=== PATIENT | male | born 1970 | race Caucasian/White ===

== ENCOUNTER 2023-10-21 13:53 | Emergency (ER) | payer OTHER, SELFPAY ==
[2023-10-21 14:17] VITALS: BP 135/89; PULSE 65; RESP 18; TEMP 36.4; O2SAT 98
--- NOTE | 2023-10-21 14:41 | ED.URI ---
HPI - URI/Sore Throat General Chief Complaint: Upper Respiratory Infection Stated Complaint: sorethroat History of Present Illness HPI Narrative: 53-year-old male presented for complaint of nasal congestion, sore throat and cough worsening over the past 4 days. Reports fever up to 100.9 yesterday. Reports body aches today. Denies taken Esperanza[place] and Motrin. Denies sick contacts. Denies shortness of breath, wheezing, nausea vomiting, diarrhea or lethargy. Tested negative for COVID at home 3 times. Related Data Home Medications Medication Instructions Recorded Confirmed No Home Medications 10/21/23 10/21/23 Allergies Allergy/AdvReac Type Severity Reaction Status Date / Time No Known Allergies Allergy Verified 10/21/23 14:26 Review of Systems Review of Systems: CONSTITUTIONAL: Denies body aches, fever, chills, or sweats. EYES: Denies visual changes, redness, or discharge. ENT: Reports rhinorrhea, sore throat, or otalgia. CARDIOVASCULAR: Denies chest pain, palpitations, or edema. RESPIRATORY: Denies dyspnea. GASTROINTESTINAL: Denies abdominal pain, nausea, vomiting, or diarrhea. SKIN: Denies rash, itching, or wounds. MUSCULOSKELETAL: Denies back pain, joint pain, or myalgia. NEUROLOGIC: Denies headache Exam Narrative: GENERAL: well-appearing, no acute distress. EYES: conjunctivae clear ENT: Mucous membranes moist. TMs pearly valenzuela with normal light reflex bilaterally; no tragal tenderness. Oropharynx not erythematous without lesions. Tonsilsnot enlarged and without exudate. No drooling, no hoarseness, no trismus, uvula midline. No tripod positioning, hot potato voice, or soft palate swelling. NECK: Supple. No lymphadenopathy CHEST: Clear to auscultation, breath sounds equal. No respiratory distress, speaks in full sentences. HEART: Regular rate and rhythm. No murmur heard. SKIN: Warm, dry, no rash. NEURO: Alert and oriented x3. Course Course Emergency Course: Patient is aware of diagnosis, understands and agrees to treatment plan. Anticipatory guidance given. Patient agrees to follow-up as directed and is aware of reasons to seek care at the emergency department. Portions of this record may have been created with voice recognition software Level of Care: Express Care Visit Vital Signs Vital signs: Vital Signs Temperature 97.6 F 10/21/23 14:17 Pulse Rate 65 10/21/23 14:17 Respiratory Rate 18 10/21/23 14:17 Blood Pressure 135/89 10/21/23 14:17 Pulse Oximetry 98 10/21/23 14:17 Oxygen Delivery Room Air 10/21/23 14:17 Temperature 97.6 F 10/21/23 14:17 Pulse Rate 65 10/21/23 14:17 Respiratory Rate 18 10/21/23 14:17 Blood Pressure 135/89 10/21/23 14:17 Pulse Oximetry 98 10/21/23 14:17 Oxygen Delivery Room Air 10/21/23 14:17 MDM - URI/Sore Throat MDM Narrative Medical decision making narrative: Negative flu, COVID, strep result reviewed with pt. Advise supportive treatments. Patient is appropriate for outpatient treatment and follow-up. Differential Diagnosis Differential diagnosis: Likely upper respiratory infection, viral infection and pharyngitis Lab Data Labs: Lab Results 10/21/23 Range/Units 14:33 POC SARS CoV-2 Ag Negative (Negative) Influenza A Screen Negative Reference Range: Negative Influenza B Screen Negative Reference Range: Negative Strep Screen Presumptive Negative *(Reference Range: Negative)* Discharge Plan Discharge Clinical Impression: Upper respiratory infection Qualifiers: URI type: unspecified URI Qualified Code(s): J06.9 - Acute upper respiratory infection, unspecified Patient Disposition: Home, Self-Care Condition: Stable Instructions: Antibiotic Form, Upper Respiratory Infection (ED) Additional In
== END 2023-10-21 15:02 | disposition home or self-care (01) ==
PROVIDERS: Emergency Provider Nurse Practitioner Family; PCP Internal Medicine
DX: J06.9 Acute upper respiratory infection, unspecified (principal); Z20.822 Contact with and (suspected) exposure to COVID-19
CPT/HCPCS: 87081; 87426; 87804; 87880; 99213; G0463

== ENCOUNTER 2024-08-20 15:54 | Outpatient (CLI) | payer OTHER, SELFPAY ==
--- OUTSIDE RECORDS SUMMARY | 2024-08-20 18:36 | XMS_ITS | Encounter Summary ---
[facility] Address [address] [place] [address] Phone Care Team Providers Care Windows Security Engineer Name Role Phone Sal Rodríguez MD Primary Care Provider [phone] Encounter Details Date Type Department Care Team (Late st Contact Info) Description 10/10/2017 Orders Only [facility] [address] [place] [address] Sal Rodríguez MD [address] [address] Social History Tobacco Use Types Packs/Day Years Used Date Smoking Tobacco: Never Smokeless Tobacco: Never Alcohol Use Standard Drinks/Week Comments No 0 (1 standard drink = 0.6 oz pur e alcohol) Sex and Gender Information Value Date Recorded Sex Assigned at Not on file 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 Gender Identity Not on file Sexual Orientation Not on file documented as of this encounter Plan of Treatment Not on file documented as of this encounter Procedures Procedure Name Priority Date/Time Associated Diagnosis Comments SCAN - RADIOLOGY/IMAGING 10/10/2017 2:09 PM CDT documented in this encounter Results * SCAN - RADIOLOGY/IMAGING (10/10/2017 2:09 PM CDT) Anatomical Region Laterality Modality Other us Sal Rodríguez MD Final Resu lt documented in this encounter Visit Diagnoses Not on filedocumented in this encounter Care Teams Windows Security Engineer Relationship Specialty Start Date End Date Sal Rodríguez MD PCP - General 08/04/12 documented as of this encounter
--- OUTSIDE RECORDS SUMMARY | 2024-08-20 18:36 | XMS_ITS | Patient Health Summary ---
Author Organization [facility] Address [address] [place] [address] Care Team Providers Care Manager Sap Name Role Phone Sal Rodríguez MD Primary Care Provider [phone] Note from [facility],non-owned Affiliates and Associated Physician Practices is amultiple site organization consisting of ambulatory clinics and hospital sitesin [place], [place], [place] and [place]. This disclosure is being madepursuant to the Care Everywhere program and may not contain all information available regarding this patient. Last updated 18.[facility] Allergies No known active allergies Medications Be aware that medications may not be up to date on this document. Always verify current medications with the patient. No known medications Social History Tobacco Use Types Packs/Day Years Used Date Smoking Tobacco: Never Sex and Gender Information Value Date Recorded Sex Assigned at Not on file Gender Identity Not on file Sexual Orientation Not on file Last Filed Vital Signs Vital Sign Reading Time Taken Comments Blood Pressure 114/74 08/02/2018 4:34 PM CLINICAL LABORATORY MEDICAL DIRECTOR Pulse 90 08/02/2018 4:34 PM CLINICAL LABORATORY MEDICAL DIRECTOR Temperature 36.9 C (98.4 F) 08/02/2018 4:34 PM CLINICAL LABORATORY MEDICAL DIRECTOR Respiratory Rate 16 08/02/2018 4:34 PM CLINICAL LABORATORY MEDICAL DIRECTOR Oxygen Saturation 96% 08/02/2018 4:34 PM CLINICAL LABORATORY MEDICAL DIRECTOR Inhaled Oxygen Concentration - - Weight 78.9 kg (174 lb) 08/02/2018 4:34 PM CLINICAL LABORATORY MEDICAL DIRECTOR Height 185.4 cm (6' 1 ) 08/02/2018 4:34 PM CLINICAL LABORATORY MEDICAL DIRECTOR Body Mass Index 22.96 08/02/2018 4:34 PM CLINICAL LABORATORY MEDICAL DIRECTOR Procedures * INFLUENZA A+B - POINT OF CARE (AMB)(Performed 08/02/2018) Performed for Influenza * STREP A SCREEN - POINT OF CARE (AMB) STL(Performed 08/02/2018) Performed for Influenza * STREP A SCREEN - POINT OF CARE (AMB) STL(Performed 04/26/2016) Performed for Pharyngitis, unspecified etiology Results * STREP A SCREEN - POINT OF CARE (AMB) STL (08/02/2018) Only the most recent of2 resultswithin the time period is included. Strep A Rapid POCT Negative Negative Strep A Internal Control Present Lot # [id number] Expiration Date [id number] Throat ENTIRE THROAT (SURFACE REGION OF NECK) / Unknown 08/02/2018 Antwon Reinoso MOVING PICTURE OPERATOR-ONCOLOGY PHARMACIST LAB - POINT OF CARE ORDERABLES * (ABNORMAL) INFLUENZA A+B - POINT OF CARE (AMB) (08/02/2018) Influenza A Antigen Rapid Positive(A) Negative Influenza B Antigen Rapid Negative Negative Influenza Internal Control present NEGATIVE - POSITIVE Influenza Lot Number [id number] Influenza Expiration Date 9,349,020 Other NASOPHARYNGEAL SWAB / Unknown 08/02/2018 Antwon Reinoso MOVING PICTURE OPERATOR-ONCOLOGY PHARMACIST LAB - POINT OF CARE ORDERABLES Care Teams Manager Sap Relationship Specialty Start Date End Date Sal Rodríguez MD PCP - General 04/26/16
--- OUTSIDE RECORDS SUMMARY | 2024-08-20 18:36 | XMS_ITS | Referral Summary ---
Author Organization [facility] Address [address] [place] [address] Care Team Providers Care Handle Finisher Name Role Phone Sal Rodríguez MD Primary Care Provider [phone] Source Comments [facility],non-owned Affiliates and Associated Physician Practices is amultiple site organization consisting of ambulatory clinics and hospital sitesin [place], [place], [place] and [place]. This disclosure is being madepursuant to the Care Everywhere program and may not contain all information available regarding this patient. Last updated 18.[facility] Allergies No known active allergies Medications Be [...] Comments Blood Pressure 114/74 08/02/2018 4:34 PM TAIL EDGER Pulse 90 08/02/2018 4:34 PM TAIL EDGER Temperature 36.9 C (98.4 F) 08/02/2018 4:34 PM TAIL EDGER Respiratory Rate 16 08/02/2018 4:34 PM TAIL EDGER Oxygen Saturation 96% 08/02/2018 4:34 PM TAIL EDGER Inhaled Oxygen Concentration - - Weight 78.9 kg (174 lb) 08/02/2018 4:34 PM TAIL EDGER Height 185.4 cm (6' 1 ) 08/02/2018 4:34 PM TAIL EDGER Body Mass Index 22.96 08/02/2018 4:34 PM TAIL EDGER Plan of Treatment Not on file Care Teams Handle Finisher Relationship Specialty Start Date End Date Sal Rodríguez MD PCP - General 04/26/16
--- OUTSIDE RECORDS SUMMARY | 2024-08-20 18:36 | XMS_ITS | Data Portability ---
Author Organization [facility] Address [address] [place] [address] Care Team Providers Care International Trade Analyst Name Role Phone GARRICKMARIANGEL ANG Primary Care Provider Unavailab le Assessment No assessment recorded. Plan of Treatment Reminders Order Date Submit Date Provider Last Modified By Organization Details Last Modified Time Details Appointments None recorded. Lab prolactin, serum 2023 024 [facility], [address], [address], 14:56:15 testostero ne, free + total, serum 2023 024 [facility], [facility] [address], [address], 14:55:05 TSH + free T4, serum 2023 024 [employer] [facility], [facility] [address], [address], 14:55:31 lipid panel, serum 2023 024 [facility], [facility] [address], [address], 14:55:39 CBC w/ auto diff 2023 024 [facility] [employer] [facility], [facility] [address], [address], 14:56:37 CMP, serum or plasma 2023 024 [facility] [employer] [facility], [address] [address], [place], [address], 14:55:54 PSA, serum or plasma 2023 024 [facility], [address] [address], [place], [address], 14:56:26 noninvasiv e colorectal cancer DNA + occult blood screening, QL, stool 2023 [facility] (Cologuard Orders Only), [address], [address], [place], [address], 03:26:58 HbA1c (hemoglobi n A1c), blood 2023 [facility] [employer] [facility], [address], [address], 14:56:03 Referral None recorded. Procedures None recorded. Surgeries None recorded. Imaging None recorded. Medication Orders None recorded. Patient TargetsNo targets recorded. Patient InstructionsNo instructions recorded. Reason for Referral None Reported. Results Created Date Observation Date Name Description Value Unit Range Abnormal Flag Note LastModifiedBy Organization Detail LastModifiedTime 03/15/20 24 03/15/2024 COLOG UARD cologuard result reportable NEGATI VE negati ve normal NEGAT MERVAT TEST RESUL T. A negat mervat Colog uard resul t indic ates a low likel ihood that a color ectal cance r (CRC) or advan nelly adeno ma (dennis omato us polyp s with more advan nelly pre-m align ant featu res) is prese nt. The chanc e that a perso n with a negat mervat Colog uard test has a color ectal cance r is less than 1 in 1500 (nega tive predi ctive value >99.9 %) or has an advan nelly adeno ma is less than 5.3% (nega tive predi ctive value 94.7% ). These data are based on a prosp ectiv e cross -sect ional study of 10,00 0 indiv idual s at [facility] risk for color ectal cance r who were scree leni with both Colog uard and colon oscop y. (Rama Gates et al, N Engl J Med 2014; 370(1 4):12 86-12 97) The sriram l value (refe rence range ) for this assay is negat mervat. COLOG UARD RE-SC REENI NG RECOM MENDA TION: Perio dic color ectal cance r scree fede is an impor tant part of preve ntive healt hcare for asymp tomat ic indiv idual s at [facility] risk for color ectal cance r. Follo wing a negat mervat Colog uard resul t, the Ameri can Cance r Socie ty and U.S. Multi -Soci ety Task Force scree fede guide lines recom mend a Colog uard re-sc reemonique ng inter derrick of 3 years . Refer ences : Ameri can Cance r Socie ty Guide line for Color ectal Cance r Scree fede: https ://karen w.can cer.o rg/ca ncer/ colon -rect al-ca ncer/ detec tion- diagn osis- stagi ng/ac s-rec ommen datio ns.ht ml.; Jose DK, Abraham duque CR, Elizabeth TolbertK, Color ectal Cance r Scree fede: Recom menda tions for Physi cians and Patie nts from the U.S. Multi -Soci ety Task Force on Color ectal Cance r Scree fede Yumiko y 2017; 112:1 016-1 030. TEST DESCR IPTIO N: Niland site algor ithmi c juanito sis of stool DNA-b iomar kers with hemog lobin immun oassa y. Quant itati ve value s of indiv idual bioma rkers are not repor table and are not assoc iated with indiv idual bioma rker resul t refer ence range s. Colog uard is inten ded for color ectal cance r scree fede of adult s of eithe r sex, 45 years or older , who are at [facility] for color ectal cance r (CRC) . Colog uard has been appro vinh for use by the U.S. FDA. The perfo rmanc e of Colog uard was estab lishe d in a cross secti onal study of [facility] adult s aged 50-84 . Colog uard perfo rmanc e in patie nts ages 45 to 49 years was estim ated by sub-g roup juanito sis of near- age group s. Colon oscop ies perfo rmed for a posit mervat resul t may find as the most clini george signi fican t lesio n: color ectal cance r [4.0% ], advan nelly adeno ma (incl uding sessi le marilia inocente polyp s great er than or equal to 1cm diame ter) [20%] or non- advan nelly adeno ma [31%] ; or no color ectal neopl eris [45%] . These estim ates are deriv ed from a prosp ectiv e cross -sect ional scree fede study of 10,00 0 indiv idual s at [facility] risk for color ectal cance r who were scree leni with both Colog uard and colon oscop y. (Rama Gates et al, N Engl J Med 2014; 370(1 4):12 86-12 97.) Colog uard may produ ce a false negat mervat or false posit mervat resul t (no color ectal cance r or preca ncero us polyp prese nt at colon oscop y follo w up). A negat mervat Colog uard test resul t does not guara ntee the absen ce of CRC or advan nelly adeno ma (pre- cance r). The curre nt Colog uard scree fede inter derrick is every 3 years . (Amer ican Cance r Socie ty and U.S. Multi -Soci ety Task Force ). Colog uard perfo rmanc e data in a 10,00 0 patie nt pivot al study using colon oscop y as the refer ence metho d can be acces sed at the follo wing locat ion: www.e xactl abs.c om/re millicent . Addit ional descr iptio n of the Colog uard test proce ss, warni ngs and preca ution s can be found at www.c leatha nargis.c om. Not Available [facility] (Cologuard Orders Only) [address], [place], [address], 03/21/2024 03:26:58 Result Notes None recorded. Problems Name Problem SNOMED Code Status Onset Date Resolution Date Notes Provider Name and Address Organization Details Recorded Time Erectile dysfunction 040397279 Active 2023 OVI Toussaint Attn: Chelsey jones,[address] [place], [address], [facility] 4 00:46:35 Body mass index 25-29 - overweight 934855861 Active 2023 [facility] Toussaint Attn: Chelsey jones,[address] [facility], [place], [address], [facility] 4 00:47:13 Problem Notes None recorded. Procedures Surgical History Date Name Laterality Status Provider Name and Address Organization Details Recorded Time surgical procedure completed Mimi Sue MA [facility] 03/09/2024 09:31:01 arthroscopy of shoulder completed Mimi Sue MA [facility] 03/09/2024 09:31:57 Imaging Results None recorded. Procedure Notes None recorded. Medical Equipment None Reported. Allergies No known drug allergies Medications Name Sig Start Date Stop Date Status Note LastModified by Organization Details LastModified Time blood pressu solution kit 03/09 completed Not Available Not Available Not Available sildenafil 100 mg tablet Take 1 tablet every day by oral route. active Not Available Not Available No t Available tadalafil 5 mg tablet Take by oral route for 25 days. active Not Available Not Available No t Available Vitals Date Recorded Respiratory rate Body height Body mass index (BMI) Body weight Oxygen saturation Oxygen saturation in Arterial blood by Pulse oximetry Heart rate Systolic blood pressure Diastolic blood pressure Provider Name and Address Organization Details Last Updated DateTime 4 18 /min 180.34 cm 25.9 kg/m2 60472.1 8 g 98 % 98 % 80 /min 132 mm[Hg] 80 mm[Hg] Mimi Sue MA [facility] 4 09:25:54 Date Recorded Systolic blood pressure Diastolic blood pressure Provider Name and Address Organization Details Last Updated DateTime 03/09/2024 120 mm[Hg] 82 mm[Hg] OVI Toussaint Attn: Accounting,[address] [place], [address], [facility] 03/09/2024 09:57:40 Date Recorded Body height Body mass index (BMI) Body weight Oxygen saturation Oxygen saturation in Arterial blood by Pulse oximetry Heart rate Systolic blood pressure Diastolic blood pressure Provider Name and Address Organization Details Last Updated DateTime 5 180.34 cm 26.6 kg/m2 91404.1 4 g 98 % 98 % 78 /min 130 mm[Hg] 82 mm[Hg] Mimi Sue MA [facility] 5 12:46:52 Social History Question Answer Notes LastModified by Organizat ion Details LastModified Time Tobacco Smoking Status Never Smoker Mimi Sue MA null, [facility] 03/09/2024 09:23:33 Do You Have An Advance Directive? Yes Information not available 03/09/2024 What Is Your Level Of Alcohol Consumption? Occasional Information not available 03/09/2024 Are You Blind Or Do You Have Difficulty Seeing? No Glasses Information not available 03/09/2024 What Is Your Level Of Caffeine Consumption? Moderate Soda/ Coffee? Tea Information not available 03/09/2024 In The 14 Days Before Symptom Onset, Have You Had Close Contact With A Laboratory-confi rmed COVID-19 While That Case Was Ill? No Information not available 03/09/2024 In The 14 Days Before Symptom Onset, Have You Had Close Contact With A Person Who Is Under Investigation For COVID-19 While That Person Was Ill? No Information not available 03/09/2024 Have You Been To An Area Known To Be High Risk For COVID-19? No Information not available 03/09/2024 Are You Currently Employed? Yes Information not available 08/13/2024 Are You Deaf Or Do You Have Serious Difficulty Hearing? No Tinnuits Information not available 03/09/2024 What Type Of Diet Are You Following? REGULAR Information not available 03/09/2024 Are There Any Guns Present In Your Home? No Information not available 03/09/2024 What Was The Date Of Your Most Recent Tobacco Screening? 08/13/2024 Information not available 08/13/2024 What Is Your Relationship Status? Information not available 03/09/2024 Do You Use Your Seat Belt Or Car Seat Routinely? Yes Information not available 03/09/2024 Do You Have Smoke And Carbon Monoxide Detectors In Your Home? Yes Information not available 03/09/2024 Do You Feel Stressed (tense, Restless, Nervous, Or Anxious, Or Unable To Sleep At Night)? [id number] Information not available 03/09/2024 Do You Use Any Illicit Or Recreational Drugs? No Information not available 03/09/2024 Do You Use Sunscreen Routinely? No Information not available 03/09/2024 Has Tobacco Cessation Counseling Been Provided? No Information not available 03/09/2024 Do You Or Have You Ever Used Any Other Forms Of Tobacco Or Nicotine? No Information not available 03/09/2024 Sex: Male Functional Status Question Answer Note LastModified by Organizat ion Details LastModified Time Are you able to care for yourself? Yes Information not available 03/09/2024 What is your exercise level? Moderate running/ cardio Information not available 03/09/2024 Mental Status None recorded. Family History Relationship Description Onset Age of this Age Resolved Age Notes LastModified by Organization Details LastModified Time Maternal Grandmother Diabetes mellitus [email or web address] Not available 2023 09:22:27 Father Cerebrovascu lar accident in sept tcarterma Not available 08/13/2024 12:44:11 Medical History Condition Response Muscle, Joint, or Bone Problems Y Asthma Y Allergies Y Immunizations Vaccine Type Date Status Note Provider Nam e and Address Organization Details Recorded Time COVID-19, mRNA, LNP-S, PF, 30 mcg/0.3 mL dose 08/14/2020 completed TALITA [place], [place] - [facility] 08/13/2024 12:44:56 COVID-19, mRNA, LNP-S, PF, 30 mcg/0.3 mL dose 09/04/2020 completed TALITA [place], [place] - [facility] 08/13/2024 12:44:56 Past Encounters Encounter ID Performer Location Encounter Start Date Encounter Closed Date Diagnosis/Indication Diagnosis SNOMED-CT Code Diagnosis ICD10 Code Diagnosis Note [id number] OVI Toussaint [facility] [address] [place] [address] 03/09/2024 09:10:37 03/09/2024 11:46:17 Adult health examination 422563397 Z00.00 New patient wellness exam completed with fasting labs ordered Cholesterol screening 27 1447370 Z13.220 Fasting lipid panel due Diabetes m ellitus screening 991384405 Z13.1 Annual A1c screening ordered Screening for malignant neoplasm of prostate 688285853 Z12.5 Annual PSA ordered Thyroid di sorder screening 266447697 Z13.29 Routine thyroid function testing ordered Erectile dysfunction 860 300190 F52.21 Screening prolactin and testostero ne levels ordered to evaluate underlying ED Screening for malignant neoplasm of colon 753209795 Z12.11 Patient opts for Cologuard screening method Body mass index 25-29 - overweight 897415901 Z68.25 BMI is 25.9 [id number] OVI Toussaint [facility] [address] [place] [address] 08/13/2024 12:17:25 08/13/2024 13:55:29 Body mass index 25-29 - overweight 065735318 Z68.25 BMI is 25.9 Overweight 893082168 E66 .3 Palpitations 51448755 R0 0.2 Health Concerns Section Related Observation LastModified by Organization Detai ls LastModified Time None Recorded Concern Status LastModified by Organization Details LastModified Time None Recorded Advance Directives Directive Y: Payers Encounter Date Sequence Insurance Name Policy Number Policy Mccullough Covered Member ID Mccullough Member ID Guarantor Name 03/09/2024 1 [employer] - CHOICE (POS II) [id number] Jaime Leandro [id number] Jaime Reeves Notes Date Note Type Note Provider Name and Address Organization Details Recorded Time 03/09/2024 text/html Patient is here for annual wellness exam. He is due for updated labs. His only complaint is some erectile dysfunction. Difficult achieving and maintaining erections. OVI Toussaint Attn: Accounting,[address] [facility], [place], [address], [facility] 03/16/2024 00:47:38
--- OUTSIDE RECORDS SUMMARY | 2024-08-20 18:36 | XMS_ITS | Clinical Summary ---
Author Organization [facility] [address] Address [address] [place] [address] Phone Care Team Providers Care Corporate Executive Chef Name Role Phone Sal Rodríguez MD Primary Care Provider +1- [phone] Allergies Active Allergy Reactions Criticality Noted Date Comments Poison Avril Extract Rash Reaction: Severe rash, Medications albuterol HFA (PROVENTIL HFA,VENTOLIN HFA) 90 mcg/actuation inhaler inhale 2 puff by inhalation route every 4 - 6 hours as needed 1 Inhaler 4 6 Active Active Problems Problem Noted Date Diagnosed Date Impingement syndrome of right shoulder 9 Overview (08/10/2018): Added automatically from request for surgery [id number] Incomplete tear of right rotator cuff 08/10/2018 Overview (08/10/2018): Added automatically from request for surgery [id number] Biceps tendinitis of right upper extremity 08/10 Overview (08/10/2018): Added automatically from request for surgery [id number] Annual physical exam 10/07/2017 Assessment & Plan (10/07/2017 5:36 PM CDT): 47-year-old gentleman here for annual exam he has a past history of asthma he rarely needs to use is at albuterol HFA. Since his last visit with me recent had a dog bite was treated at [facility] in given a tetanus shot. Was expected is healing appropriate he is present on Augmentin for the dog bite. Remainder patient exam is normal. 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 Overview (09/17/2016): Low HDL (under 40) Immunizations Immunization Administration Dates Next Due Tdap 08/04/2012 Surgical History Surgery Date Site/Laterality Comments VASECTOMY vasectomy CYSTECTOMY forehead Medical History Medical History Date Comments H/O removal of cyst 04/07/2007 Asthma Exercise Induced Family History Medical History Relation Name Comments Other Brother congenital kidn ey problem; Migraines Daughter Migraines; Diabetes Maternal Grandmother Diabete s mellitus; Alcohol abuse Neg Hx Kidney disease Neg Hx Relation Name Status Comments Brother Daughter Maternal Grandmother Social History Tobacco Use Types Packs/Day Years Used Date Smoking Tobacco: Never Smokeless Tobacco: Never Alcohol Use Standard Drinks/Week Comments No 0 (1 standard drink = 0.6 oz pur e alcohol) Sex and Gender Information Value Date Recorded Sex Assigned at Not on file Legal Sex Male 12:41 AM FIRMWARE DEVELOPER Gender Identity Not on file Sexual Orientation Not on file Obstetrics History Last Filed Vital Signs Vital Sign Reading Time Taken Comments Blood Pressure 125/84 02/05/2019 12:15 PM CDT Pulse 72 02/05/2019 12:15 PM CDT Temperature 36.2 C (97.2 F) 08/16/2018 1:41 PM FIRMWARE DEVELOPER Respiratory Rate 18 08/16/2018 2:12 PM FIRMWARE DEVELOPER Oxygen Saturation 100% 08/16/2018 2:12 PM FIRMWARE DEVELOPER Inhaled Oxygen Concentration - - Weight 84.4 kg (186 lb) 02/05/2019 12:15 PM CDT Height 182.9 cm (6') 02/05/2019 12:15 PM CDT Body Mass Index 25.23 02/05/2019 12:15 PM CDT Plan of Treatment Not on file Medical Devices Implanted Type Area Mud Jack Operator Device Identifier Shelf Expiration Date Model / Serial / Lot [employer] 2503-A Arthroscopic Delivery System [place] Suture Sterile Disposable - [id number] Implanted:Qty: 1 on 08/16/2018 by Nigel Gregory MD at [facility] Right: Shoulder [employer] 04/05/2019 2503-A / / [id number] [employer] 2504-1 Regenerate Tendon [place] Suture - [id number] Implanted:Qty: 1 on 08/16/2018 by Nigel Gregory MD at [facility] Right: Shoulder [employer] 06/14/2019 2504-1 / / [id number] [employer] 2169-3 Reconstitute Scaffold Large Mesh Surgical Collagen Sterile Latex - [id number] Implanted:Qty: 1 on 08/16/2018 by Nigel Gregory MD at [facility] Right: Shoulder [employer] 05/12/2021 2169-3 / / [id number] Insurance [employer] PPO [facility] [place] HMO Care Teams Corporate Executive Chef Relationship Specialty Start Date End Date Sal Rodríguez MD PCP - General 08/04/12
--- OUTSIDE RECORDS SUMMARY | 2024-08-20 18:36 | XMS_ITS | Referral Summary ---
Author Organization [facility] [address] Address [address] [place] [address] Phone Care Team Providers Care Cut Out Marker Name Role Phone Sal Rodríguez MD Primary Care Provider +1- [phone] Allergies Active Allergy Reactions Criticality Noted Date Comments Poison Avril Extract Rash Reaction: Severe rash, Medications albuterol HFA (PROVENTIL HFA,VENTOLIN HFA) 90 mcg/actuation inhaler inhale 2 puff by inhalation route every 4 - 6 hours as needed 1 Inhaler 4 6 Active Active Problems Problem Noted Date Diagnosed Date Impingement syndrome of right shoulder 9 Overview (08/10/2018): Added automatically from request for surgery [id number] Incomplete tear of right rotator cuff 08/10/2018 Overview (08/10/2018): Added automatically from request for surgery [id number] Biceps tendinitis of right upper extremity 08/10 Overview (08/10/2018): Added automatically from request for surgery [id number] Annual physical exam 10/07/2017 Assessment & Plan (10/07/2017 5:36 PM CDT): 47-year-old gentleman here for annual exam he has a past history of asthma he rarely needs to use is at albuterol HFA. Since his last visit with me recent had a dog bite was treated at [facility] in given a tetanus shot. Was expected is healing appropriate he is present on Augmentin for the dog bite. Remainder patient exam is normal. 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 Overview (09/17/2016): Low HDL (under 40) Immunizations Immunization Administration Dates Next Due Tdap 08/04/2012 Social History Tobacco Use Types Packs/Day Years Used Date Smoking Tobacco: Never Smokeless Tobacco: Never Alcohol Use Standard Drinks/Week Comments No 0 (1 standard drink = 0.6 oz pur e alcohol) Sex and Gender Information Value Date Recorded Sex Assigned at Not on file Legal Sex Male 12:41 AM MARKETING SUPPORT SPECIALIST Gender Identity Not on file Sexual Orientation Not on file Last Filed Vital Signs Vital Sign Reading Time Taken Comments Blood Pressure 125/84 02/05/2019 12:15 PM CDT Pulse 72 02/05/2019 12:15 PM CDT Temperature 36.2 C (97.2 F) 08/16/2018 1:41 PM MARKETING SUPPORT SPECIALIST Respiratory Rate 18 08/16/2018 2:12 PM MARKETING SUPPORT SPECIALIST Oxygen Saturation 100% 08/16/2018 2:12 PM MARKETING SUPPORT SPECIALIST Inhaled Oxygen Concentration - - Weight 84.4 kg (186 lb) 02/05/2019 12:15 PM CDT Height 182.9 cm (6') 02/05/2019 12:15 PM CDT Body Mass Index 25.23 02/05/2019 12:15 PM CDT Plan of Treatment Not on file Medical Devices Implanted Type Area Chronic Disease Epidemiologist Device Identifier Shelf Expiration Date Model / Serial / Lot [employer] 2503-A Arthroscopic Delivery System [place] Suture Sterile Disposable - [id number] Implanted:Qty: 1 on 08/16/2018 by Nigel Gregory MD at [facility] Right: Shoulder [employer] 04/05/2019 2503-A / / [id number] [employer] 2504-1 Regenerate Tendon [place] Suture - [id number] Implanted:Qty: 1 on 08/16/2018 by Nigel Gregory MD at [facility] Right: Shoulder [employer] 06/14/2019 2504-1 / / [id number] [employer] 2169-3 Reconstitute Scaffold Large Mesh Surgical Collagen Sterile Latex - [id number] Implanted:Qty: 1 on 08/16/2018 by Nigel Gregory MD at [facility] Right: Shoulder [employer] 05/12/2021 2169-3 / / [id number] Insurance [facility] [place] [address] [place] [address] HEALTHCARE HMO Care Teams Cut Out Marker Relationship Specialty Start Date End Date Sal Rodríguez MD PCP - General 08/04/12
--- OUTSIDE RECORDS SUMMARY | 2024-08-20 18:36 | XMS_ITS | Clinical Summary ---
Author Organization [facility] Address [address] [place] [place] [address] Care Team Providers Care Parole Agent Name Role Phone Sal Rodríguez MD Primary Care Provider Source Comments [facility],non-owned Affiliates and Associated Physician Practices is amultiple site organization consisting of ambulatory clinics and hospital sitesin [place], [place], [place] and [place]. This disclosure is being madepursuant to the Care Everywhere program and may not contain all information available regarding this patient. Last updated 18.[facility] Allergies No known active allergies Medications Be [...] Comments Blood Pressure 114/74 08/02/2018 4:34 PM RADIOTELEPHONE TECHNICAL OPERATOR Pulse 90 08/02/2018 4:34 PM RADIOTELEPHONE TECHNICAL OPERATOR Temperature 36.9 C (98.4 F) 08/02/2018 4:34 PM RADIOTELEPHONE TECHNICAL OPERATOR Respiratory Rate 16 08/02/2018 4:34 PM RADIOTELEPHONE TECHNICAL OPERATOR Oxygen Saturation 96% 08/02/2018 4:34 PM RADIOTELEPHONE TECHNICAL OPERATOR Inhaled Oxygen Concentration - - Weight 78.9 kg (174 lb) 08/02/2018 4:34 PM RADIOTELEPHONE TECHNICAL OPERATOR Height 185.4 cm (6' 1 ) 08/02/2018 4:34 PM RADIOTELEPHONE TECHNICAL OPERATOR Body Mass Index 22.96 08/02/2018 4:34 PM RADIOTELEPHONE TECHNICAL OPERATOR Plan of Treatment Health Maintenance Due Date Last Done Comments COLOGUARD (AGES 45-75) - COL ON CA SCREENING 1971 COLON MONITORING 1971 COLONOSCOPY - COLON CA SCREENING 1971 CT COLONOGRAPHY - COLON CA SCREENING 1971 Colorectal Cancer Screening 1971 FIT - COLON CA SCREENING 1971 FLEX SIG - COLON CA SCREENING 1971 LIPID TESTING 1971 HIV SCREENING 1986 HEPATITIS C SCREENING 05/08/1989 DTAP/TDAP/TD VACCINES (1 - Tdap) 1990 HEPATITIS B VACCINE (1 of 3 - 19+ 3-dose series) 1990 PNEUMOCOCCAL VACCINE 50+ (1 of 1 - PCV) 2021 ZOSTER VACCINE (1 of 2) 2021 COVID-19 VACCINE (1 - 2023-2 5 season) 2024 INFLUENZA VACCINE (#1) 2024 DEPRESSION SCREENING 06/13/2024 HIB VACCINE Aged Out No longer eligi ble based on patient's age to complete this topic HPV VACCINE Aged Out No longer eligi ble based on patient's age to complete this topic MENINGOCOCCAL (Group B) VACCINE Aged Out No longer eligible based on patient's age to complete this topic MENINGOCOCCAL VACCINE Aged Out No lester vibha eligible based on patient's age to complete this topic PNEUMOCOCCAL VACCINE Aged Out No long er eligible based on patient's age to complete this topic Care Teams Parole Agent Relationship Specialty Start Date End Date Sal Rodríguez MD PCP - General 04/26/16
== END 2024-08-20 15:55 | disposition home or self-care (01) ==
LOC: ANHCARD 15:57
PROVIDERS: PCP Internal Medicine; Visit Provider Physician Assistant
DX: R00.2 Palpitations (principal)
CPT/HCPCS: 93242